=== PATIENT | female | born 1965 | race Caucasian/White ===

== ENCOUNTER → 2021-01-21 | Outpatient (CLI) | payer OTHER ==
[~2021-01-21] MED LIST: BENTYL 20MG TAB20 MG PO; ECOTRIN81 MG PO; IMITREX100 MG PO; KLONOPIN1 MG PO; LIPITOR TAB 2020 MG PO; LOPRESSOR 25 MG25 MG PO; PANTOPRAZOLE SO40 MG PO; PROPRANOLOL HCL10 MG PO; STOOL SOFTENER240 MG PO; SYMBICORT 160-1 INHA INH; VITAMIN D250000 UNIT PO; ZESTRIL40 MG PO
[2021-01-22 16:14] LABS: ENDOMYSIAL ANTIBODY IGA Negative (Negative); IMMUNOGLOBULIN A, QN, SERUM 245 mg/dL (87-352); T-TRANSGLUTAMINASE (TTG) IGA <2 U/mL (0-3)
== END ==
LOC: LAB 15:11
PROVIDERS: Internal Medicine Gastroenterology
DX: R19.7 Diarrhea, unspecified (principal)
CPT/HCPCS: 36415; 82784; 83993

== ENCOUNTER → 2021-02-27 | Day surgery (SDC) | payer OTHER ==
[~2021-02-27] MED LIST changes: +ALLERGY RELIEF10 M1 PO; +FAMOTIDINE20 MG PO; +NORVASC5 MG PO; +PAMELOR10 MG PO; +PROAIR HFA8.5 GM INH; +REGLAN5 MG PO; +TOPAMAX25 MG PO; +VITAMIN D21250 MCG PO; +ZANAFLEX 4 MG TA4 MG PO
== END | disposition home or self-care (01) ==
LOC: OR 06:18
DX: R19.7 Diarrhea, unspecified (principal); R19.5 Other fecal abnormalities; R63.6 Underweight; I10 Essential (primary) hypertension; G43.909 Migraine, unspecified, not intractable, without status migrainosus; J44.9 Chronic obstructive pulmonary disease, unspecified; K21.9 Gastro-esophageal reflux disease without esophagitis; E11.9 Type 2 diabetes mellitus without complications; F17.200 Nicotine dependence, unspecified, uncomplicated; Z68.1 Body mass index [BMI] 19.9 or less, adult; Z90.710 Acquired absence of both cervix and uterus; Z90.49 Acquired absence of other specified parts of digestive tract; Z79.82 Long term (current) use of aspirin; Z79.2 Long term (current) use of antibiotics; Z79.899 Other long term (current) drug therapy; Z88.0 Allergy status to penicillin; Z88.1 Allergy status to other antibiotic agents; Z88.2 Allergy status to sulfonamides; Z88.8 Allergy status to other drugs, medicaments and biological substances
CPT/HCPCS: J2001; J2704; J7040